=== PATIENT | female | born 1945 | race Caucasian/White ===

== ENCOUNTER → 2019-12-03 | Outpatient (CLI) | payer MEDICARE | END | disposition home or self-care (01) | LOC: LAB SHORT 08:23 → PLD 08:23 | DX: C44.629 Squamous cell carcinoma of skin of left upper limb, including shoulder (principal) | CPT/HCPCS: 88305 ==

== ENCOUNTER → 2020-11-06 | Outpatient (CLI) | payer MEDICARE | END | disposition home or self-care (01) | LOC: PLD 10:51 → LAB SHORT 10:51 | DX: D48.5 Neoplasm of uncertain behavior of skin (principal) | CPT/HCPCS: 88305 ==

== ENCOUNTER → 2020-12-10 | Outpatient (CLI) | payer MEDICARE | LOC: PLD 08:37 → LAB SHORT 08:37 | DX: C44.722 Squamous cell carcinoma of skin of right lower limb, including hip (principal) | CPT/HCPCS: 88305 ==

== ENCOUNTER → 2021-07-21 | Outpatient (CLI) | payer MEDICARE ==
[2021-07-21 13:43] LABS: Stool Occult Bld Immuno 1 Negative (NEGATIVE)
== END | disposition home or self-care (01) ==
LOC: LAB SHORT 07:00 → LAB 07:00
PROVIDERS: Nurse Practitioner Family
DX: Z12.11 Encounter for screening for malignant neoplasm of colon (principal)
CPT/HCPCS: 82274

== ENCOUNTER → 2022-01-04 | Outpatient (CLI) | payer MEDICARE | END | disposition home or self-care (01) | LOC: LAB SHORT 11:29 | DX: R23.4 Changes in skin texture (principal); L98.8 Other specified disorders of the skin and subcutaneous tissue | CPT/HCPCS: 88305; 88312 ==

== ENCOUNTER → 2022-05-06 | Outpatient (CLI) | payer MEDICARE | LOC: PLD 14:51 → LAB SHORT 14:51 | DX: D04.71 Carcinoma in situ of skin of right lower limb, including hip (principal); L57.0 Actinic keratosis | CPT/HCPCS: 88305 ==

== ENCOUNTER → 2022-06-02 | Outpatient (CLI) | payer MEDICARE | END | disposition home or self-care (01) | LOC: LAB SHORT 15:15 → PLD 15:15 | DX: L57.0 Actinic keratosis (principal) | CPT/HCPCS: 88305 ==

== ENCOUNTER → 2022-08-25 | Outpatient (CLI) | payer MEDICARE | END | disposition home or self-care (01) | LOC: LAB SHORT 11:13 → LAB 11:13 | DX: C44.722 Squamous cell carcinoma of skin of right lower limb, including hip (principal) | CPT/HCPCS: 88305 ==

== ENCOUNTER 2022-10-17 15:34 | Emergency (ER) | payer MEDICARE ==
[~2022-10-17] VITALS: Ht 162.6 cm; Wt 53.1 kg
== END 2022-10-17 18:20 | disposition home or self-care (01) ==
LOC: ER 15:34
DX: S05.12XA Contusion of eyeball and orbital tissues, left eye, initial encounter (principal); S51.812A Laceration without foreign body of left forearm, initial encounter; W10.9XXA Fall (on) (from) unspecified stairs and steps, initial encounter
CPT/HCPCS: 73090; 90714

== ENCOUNTER → 2023-01-10 | Outpatient (CLI) | payer MEDICARE | END | disposition home or self-care (01) | LOC: LAB SHORT 09:17 → PLD 09:17 | DX: D48.5 Neoplasm of uncertain behavior of skin (principal) | CPT/HCPCS: 88305 ==

== ENCOUNTER → 2023-07-12 | Outpatient (CLI) | payer MEDICARE | LOC: LAB SHORT 07:41 → PLD 07:41 | DX: D48.5 Neoplasm of uncertain behavior of skin (principal) | CPT/HCPCS: 88305 ==